=== PATIENT | male | born 1985 | race Caucasian/White ===

== ENCOUNTER → 2024-11-05 | Outpatient (CLI) | payer OTHER ==
[2024-11-05 10:07] LABS: CREATININE SERUM 1.02 mg/dL (0.59-1.40); EST GFR, NON-AA 81.3 (>/=60)
== END | disposition home or self-care (01) ==
LOC: RAD 08:43
PROVIDERS: ATTEND Surgery Surgical Oncology
DX: N40.0 Benign prostatic hyperplasia without lower urinary tract symptoms (principal); K40.90 Unilateral inguinal hernia, without obstruction or gangrene, not specified as recurrent; K44.9 Diaphragmatic hernia without obstruction or gangrene; K21.9 Gastro-esophageal reflux disease without esophagitis; R10.32 Left lower quadrant pain; R10.2 Pelvic and perineal pain
CPT/HCPCS: 74177; 74246; 36415; 82565; Q9965